=== PATIENT | female | born 1990 | race Caucasian/White ===

== ENCOUNTER 2016-11-11 18:51 | Emergency (ER) | payer OTHER ==
[2016-11-11 20:06] LABS: HEMOGLOBIN 12.8 gm/dl (12.3-15.3); RED BLOOD COUNT 4.79 M/UL (4.00-5.10)
[2016-11-11 20:26] LABS: BUN/CREATININE RATIO 7 (0-10)
== END 2016-11-11 21:38 | disposition home or self-care (01) ==
LOC: ER1 18:51
PROVIDERS: Family Medicine
DX: J45.909 Unspecified asthma, uncomplicated (principal); F17.210 Nicotine dependence, cigarettes, uncomplicated
CPT/HCPCS: 36415; 71020; 80053; 85025; 94664; 99283